=== PATIENT | female | born 1990 | race African-American/Black ===

== ENCOUNTER 2022-08-22 15:09 | Emergency (ER) | payer SELFPAY ==
[~2022-08-22] VITALS: Ht 157.5 cm; Wt 72.7 kg
[2022-08-22 15:17] VITALS: BP 128/77
== END 2022-08-22 20:30 | disposition left against medical advice (07) ==
LOC: ER 15:09
DX: Z53.21 Procedure and treatment not carried out due to patient leaving prior to being seen by health care provider (principal)
CPT/HCPCS: 99281